=== PATIENT | male | born 1985 | race American Indian/Alaskan Native ===

== ENCOUNTER 2018-07-29 09:20 | Emergency (ER) | payer MEDICAID, OTHER ==
[2018-07-29 09:27] VITALS: BP 148/83; PULSE 64; RESP 18; TEMP 98.9; O2SAT 100
--- NOTE | 2018-07-29 09:32 | C.PDOC ---
History Of Present Illness This is a 32 year old male with no significant medical history who present with intermittent right upper extremity numbness / tingling x 3 days. Patient denied any trauma to the area. He reports while he was working he noted intermittent tingling and numbness that radiated from the top arm down to his fingers. Denied any associated facial droop, right sided weakness, decrease in strength, difficulty breathing, or chest pain. Patient works as a repair mechanic, lifting some tools at hip level, and nothing overhead. Patient has not tried any over the counter medications. Time Seen by Provider: 07/29/18 09:31 Chief Complaint (Nursing): Upper Extremity Problem/Injury History Per: Patient History/Exam Limitations: no limitations Onset/Duration Of Symptoms: Days Severity: Moderate Pain Scale Rating Of: 5 Past Medical History Vital Signs: Last Vital Signs Temp 98.9 F 07/29/18 09:23 Pulse 64 07/29/18 09:23 Resp 18 07/29/18 09:23 BP 148/83 07/29/18 09:23 Pulse Ox 100 07/29/18 09:23 Family History: States: Unknown Family Hx - Social History Hx Tobacco Use: Yes Hx Alcohol Use: Yes Hx Substance Use: Yes - Immunization History Hx Tetanus Toxoid Vaccination: Yes Hx Influenza Vaccination: No Hx Pneumococcal Vaccination: No Review Of Systems Constitutional: Negative for: Fever, Chills Cardiovascular: Negative for: Chest Pain Respiratory: Negative for: Cough, Shortness of Breath, Pleuritic Pain Gastrointestinal: Negative for: Nausea, Vomiting, Abdominal Pain Musculoskeletal: Positive for: Neck Pain, Shoulder Pain, Arm Pain. Negative for: Back Pain, Hand Pain, Leg Pain Neurological: Positive for: Weakness, Numbness Physical Exam - Physical Exam Appears: Well, Non-toxic, Toxic Skin: Normal Color, Warm, Dry Head: Atraumatic, Normacephalic Cardiovascular: Rhythm Regular Respiratory: Normal Breath Sounds Extremity: Normal ROM (negative spurling's exam, hypertonic right trapezius muscle noted- TTP, motor strength 5/5, sensation intact, full ROM,), No Tenderness Extremity: Bilateral: Atraumatic, Normal Color And Temperature, Normal ROM Pulses: Left Radial: Normal, Right Radial: Normal Neurological/Psych: Oriented x3, Normal Speech, Normal Cognition ED Course And Treatment O2 Sat by Pulse Oximetry: 100 Medical Decision Making Medical Decision Making: Right Trapezius Spasm -- Negative Spurlings, Full ROM, Strength 5/5, sensation intact -- Trap hypertonic point noted, TTP -- Lidoderm patch to be applied to the area Disposition Doctor Will See Patient In The: Office Counseled Patient/Family Regarding: Rx Given - Disposition Disposition: HOME/ ROUTINE Disposition Time: 10:06 Condition: GOOD Additional Instructions: Please take the Flexeril 1 tablet as needed ONLY at night (as this medication makes you drowsy, YOU CANNOT drive or operate machinery on this medication). Take Tylenol 500mg 2 tablets as needed every 8 hours for pain. Apply a heating pad to the area, and stretch your arm. Refrain from any heavy lifting until your symptoms resolve. Please return to the Emergency Room if your symptoms worsen. Please follow up with your primary care within 1-2 weeks. Please take care and be well! Prescriptions: Acetaminophen [Tylenol Extra Strength] 500 mg PO Q8H #15 tablet Cyclobenzaprine [Flexeril] 5 mg PO QPM #5 tab Forms: [employer] (Anguillan), Work Excuse Print Language: POLISH - POA Present On Arrival: None - Clinical Impression Clinical Impression: Trapezius muscle spasm
[2018-07-29] MEDS ORDERED: Lidocaine 5% Patch TD ONE ×2 (09:47→09:56)
== END 2018-07-29 10:10 | disposition home or self-care (01) ==
LOC: C.ER 09:20
DX: M62.838 Other muscle spasm (principal)

== ENCOUNTER 2018-10-12 10:27 | Emergency (ER) | payer MEDICAID, OTHER ==
[2018-10-12 10:32] VITALS: BP 144/88; PULSE 63; RESP 20; TEMP 98.4; O2SAT 98
--- NOTE | 2018-10-12 11:18 | C.PDOC ---
History Of Present Illness 32-year-old male presents to the ED for evaluation of left axillary pain which began 3 days ago. Patient states he initially noticed some swelling underneath his left underarm that increased in size and became more painful. Patient applied warm compresses to the area yesterday and tried to express fluid without success. Patient rates his pain 7/10 in severity. He denies trauma to the area, fever, chills, nausea, vomiting, weakness, numbness, or tingling. Time Seen by Provider: 10/12/18 11:09 Chief Complaint (Nursing): Abnormal Skin Integrity History Per: Patient History/Exam Limitations: no limitations Onset/Duration Of Symptoms: Days (3) Current Symptoms Are (Timing): Still Present Quality Of Symptoms: Painful Additional History Per: Patient Past Medical History Reviewed: Historical Data, Nursing Documentation, Vital Signs Vital Signs: Last Vital Signs Temp 98.4 F 10/12/18 10:30 Pulse 63 10/12/18 10:30 Resp 20 10/12/18 10:30 BP 144/88 10/12/18 10:30 Pulse Ox 98 10/12/18 10:30 Primary Care Provider: FAMILY PROVIDER,NO - Medical History PMH: No Chronic Diseases Surgical History: No Surg Hx Family History: States: Unknown Family Hx - Social History Hx Tobacco Use: Yes Hx Alcohol Use: Yes Hx Substance Use: Yes - Immunization History Hx Tetanus Toxoid Vaccination: Yes Hx Influenza Vaccination: No Hx Pneumococcal Vaccination: No Review Of Systems Constitutional: Negative for: Fever, Chills Gastrointestinal: Negative for: Nausea, Vomiting Skin: Positive for: Other (pain and swelling underneath left underarm ) Neurological: Negative for: Weakness, Numbness Physical Exam - Physical Exam Appears: Non-toxic, No Acute Distress Skin: Warm, Dry, Other (2x1cm, non-fluctuant, indurated, edematous, and slightly ertyenatous mass to left axilla. Area is tender to palpation. No active drainage noted. ) Head: Atraumatic, Normacephalic Eye(s): bilateral: Normal Inspection, PERRL Ear(s): Bilateral: Normal Nose: Normal, No Discharge Oral Mucosa: Moist Tongue: Normal Appearing Lips: Normal Appearing Throat: Normal, No Erythema, No Exudate Neck: Normal ROM, Supple Lymphatic: Axilla Node Tenderness (left) Chest: Symmetrical, No Deformity, No Tenderness Cardiovascular: Rhythm Regular, No Murmur Respiratory: Normal Breath Sounds, No Rales, No Rhonchi, No Wheezing Extremity: Normal ROM, Capillary Refill (less than 2 seconds ) Neurological/Psych: Oriented x3, Normal Speech, Normal Cognition ED Course And Treatment O2 Sat by Pulse Oximetry: 98 (on RA ) Pulse Ox Interpretation: Normal Medical Decision Making Medical Decision Making: Impression: 32 year old male with left axilla pain and swelling Plan: * Clindamycin PO * Tylenol PO * reassess and disposition Progress: Clindamycin PO and Tylenol PO given. On reassessment, patient is resting comfortably, showing no signs of distress, and is stable for discharge. Patient is advised to continue antibiotics, apply warm compressess to the area and follow-up with his PMD/clinic within 1-2 days for further evaluation. Disposition Counseled Patient/Family Regarding: Diagnosis, Need For Followup, Rx Given - Disposition Referrals: at [facility] [Outside] Disposition: HOME/ ROUTINE Disposition Time: 11:30 Condition: IMPROVED Additional Instructions: Continue meds as prescribed warm compresses to the area four times a day follow up in clinic in 1-2 days return to the ED if symptoms worsen Prescriptions: Acetaminophen [Tylenol] 325 mg PO Q6 PRN #30 capsule PRN Reason: Pain, Moderate (4-7) Clindamycin [Cleocin] 300 mg PO TID #29 cap Instructions: Boil (DC) Forms: [facility] [employer] (Greek) - Clinical Impression Clinical Impression: Abscess of axilla, left, Pain in left axilla - 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 - Scribe Statement The provider has reviewed the documentation as recorded by the Scribe (Shy Boucher) All medical record entries made by the Scribe were at my direction and personally dictated by me. I have reviewed the chart and agree that the record accurately reflects my personal performance of the history, physical exam, medical decision making, and the department course for this patient. I have also personally directed, reviewed, and agree with the discharge instructions and disposition.
== END 2018-10-12 11:38 | disposition home or self-care (01) ==
LOC: C.ER 10:27
DX: L02.412 Cutaneous abscess of left axilla (principal); M79.622 Pain in left upper arm